=== PATIENT | male | born 1970 | race Caucasian/White ===

== ENCOUNTER 2017-03-10 16:12 | Emergency (ER) | payer OTHER ==
--- OUTSIDE RECORDS SUMMARY | 2017-03-10 16:42 | XMS REPORT | Continuity of Care Document ---
:1970 Author Organization [place] [address] Care Team Providers Name Role Phone Nathalia Cain Primary Care Provider [phone] Source Comments This disclosure is being made pursuant to the [employer] program and maynot contain all information available regarding this patient.numberFire Active Allergies and Adverse Reactions Not on File Current Medications Be aware that medications may not be up to date as of this document. Alwaysverify current medications with the patient. Not on file Active Problems Not on file Social History Tobacco Use Types Packs/Day Years Used Date Current Every Day Smoker Last Filed Vital Signs Vital Sign Reading Time Taken Blood Pressure 120/80 05/11/2011 4:03 PM CDT Pulse 80 05/11/2011 4:03 PM CDT Temperature 36.7 C (98 F) 05/11/2011 4:03 PM CDT Respiratory Rate - - Height 1.816 m (5' 11.5") 05/11/2011 4:03 PM CDT Weight 115.214 kg (254 lb) 05/11/2011 4:03 PM CDT Body Mass Index 34.94 05/11/2011 4:03 PM CDT Oxygen Saturation - - Plan of Care Health Maintenance Due Date Last Done Comments Retired-Pertussis Vaccine Adult 1987 Retired-Tetanus Vaccine Adult 1987 Retired-INFLUENZA VACCINE 07/23/2015 Results from Last 3 Months Not on file
[2017-03-10] MEDS ORDERED: ASPIRIN 81 MG TAB.CHEW PO ONE (16:56)
[2017-03-10] MEDS ORDERED: FAMOTIDINE 10 MG/ML VIAL IV ONE ×2 (16:57→17:10)
[2017-03-10] MEDS ORDERED: DIAZEPAM 5 MG TABLET PO ONE (16:57)
[2017-03-10] MEDS ORDERED: DIAZEPAM 5 MG TABLET ONE (17:09)
[2017-03-10] MEDS ORDERED: ASPIRIN 81 MG TAB.CHEW ONE (17:09)
[2017-03-10 17:19] LABS: Hematocrit 46.2 % (42.0-52.0); Hemoglobin 15.7 gm/dL (13.5-18.0); Mean Cell Volume 90.2 fl (78-100); Mean Corpuscular Hemoglobin 30.7 pg (27-31); Mean Platelet Volume 9.8 fl (6.0-9.5); Neutrophil # 4.5 K/mm3 (1.3-6.0); Platelet Count 227 K/mm3 (150-450); Red Blood Count 5.12 M/mm3 (4.7-6.0); Red Cell Distribution Width 12.2 % (11.5-14.0); White Blood Count 8.5 K/mm3 (4.0-10.5)
--- NOTE | 2017-03-10 17:27 | ERNOTE ---
Psychological HPI - Date Date of Service: 03/10/17 - General Chief Complaint: Anxiety Source: Reports: patient Exam Limitations: Reports: no limitations - Immun/Allergies/Home Medications Allergies/Adverse Reactions: Allergies Penicillins Adverse Reaction (Verified 03/10/17 16:30) Home Medications: HOME MEDICATIONS LORazepam [Ativan] 1 mg PO TID PRN #21 tablet 10/17/16 [Last Taken Unknown] Aspirin [Aspirin EC] 81 mg PO DAILY #30 tablet. 03/10/17 [Last Taken Unknown] LORazepam [Ativan] 1 mg PO BID #10 tablet 03/10/17 [Last Taken Unknown] Omeprazole 40 mg PO DAILY #30 capsule. 03/10/17 [Last Taken Unknown] - History of Present Illness Narrative: Patient comes due to chest pain, anxiety, and nausea. Patient has been with this problem since last week. Patient pain is on the L side of the chest area and goes up and down. Patient with no SOB and no cold sweating. Time Seen by Provider: 03/10/17 16:37 Arrived by: Reports: private car Onset/duration: Reports: intermittent Intent: Reports: no prior thoughts-suicide. Denies: suicide, prior thoughts of suicide Mechanism: Denies: overdose, incision, stab wound, ingestion Associated Symptoms: Reports: paranoid. Denies: depressed, frustrated, agitated , hostile, hallucinating, suicidal thoughts, specific plan, made gestures, made attempt Prior Treament: Denies: recently seen Review of Systems - Review of Systems Constitutional: Present: no symptoms reported EYE: Present: no symptoms reported ENT: Present: no symptoms reported Respiratory: Present: no symptoms reported Cardiology: Present: chest pain, palpitations. Absent: syncope, edema Gastrointestinal/Abdominal: Present: no symptoms reported Genitourinary: Present: no symptoms reported Musculoskeletal: Present: no symptoms reported Skin: Present: no symptoms reported Neurological: Present: anxiety. Absent: depressed, headache, dizziness/light- headedness, seizure, weakness, numbness, tingling, tremors, pre-existing deficit Endocrine: Present: no symptoms reported Hematologic/Lymphatic: Present: no symptoms reported Psych: Present: no symptoms reported All Other Systems: All systems neg except as marked - Patient's Past Medical History Patient History - Medical: No pertinent hx Patient History - Cardiac/Respiratory: No pertinent hx Patient History - Cancer: No Hx of Cancer Patient History - Surgical Procedures: Total Knee Replacement - Social History Do you dip or chew tobacco: Yes Smoking Stop Date: 02/07/17 Physical Exam - Physical Exam General Appearance: Present: wd/wn, alert, no apparent distress Eye Exam: Normal inspection: bilateral, PERRL: bilateral, EOMI: bilateral Ears, Nose, Throat: Present: normal ENT inspection, normal pharynx Neck: Present: normal inspection, nontender Respiratory: Present: no respiratory distress, normal breath sounds, no accessory muscle use, chest nontender, lungs clear Cardiovascular/Chest: Present: regular rate, rhythm, no murmur, normal peripheral pulses. Absent: JVD Gastrointestinal/Abdominal: Present: normal bowel sounds, nontender, nondistended, soft, no organomegaly Back Exam: Present: normal inspection, normal range of motion, no CVA tenderness , no vertebral tenderness Extremity Exam: Present: normal inspection, normal range of motion Neurological Exam: Present: alert, oriented, normal mood/affect, no motor/ sensory deficits Skin Exam: Present: normal color, warm/dry Lymphatic Exam: Present: no adenopathy ED Progress - Date and Time Seen: Date and Time: 03/10/17 18:22 TAVON Score: 0 Patient at the moment with no ST Elevation, negative Troponin with a Hx of CP for a week. Patient will be given Tx for anxiety and has been recommended out patient further evaluation for his condition. At this point patient has a low probability for SD. Patient gastric complaint has improved. - Results and Orders Patient's Lab Results:: I have reviewed the patient's lab results. Results and Orders: CBC: WNL CMP: WNL Trop: Negative - Vital Signs Patient's Vital Signs:: I have reviewed the patient's vital signs. Vital Signs: Vital Signs 03/10/17 03/10/17 16:18 16:31 Temperature 37 C 37 C Pulse Rate 84 84 Respiratory 14 14 Rate Blood Pressure 140/98 140/98 O2 Sat by Pulse 98 98 Oximetry - EKG EKG: NSR EKG read: Interp. by me EKG Comments: HR: 76, No ST Elevation, T wave change in III noticed. - X-Ray X-Ray #1 X-Ray: chest - No infiltrates found on film - Progress/Reassessment Chief Complaint: Anxiety Progress:: Improved - Transfer of Care Expected Disposition: Discharge Plan - Plan Plan: Patient is to get out patient follow up and evaluation. Departure Clinical Impression: Anxiety Chest pain Qualifiers: Chest pain type: unspecified Qualified Code(s): R07.9 - Chest pain, unspecified - Departure Disposition: Home self-care Condition: Stable Instructions: Panic Attacks, [id number], Nonspecific Chest Pain, [id number] , Chest Wall Pain, [id number] Referrals: Laura Pearce ARNP [Primary Care Provider] - Prescriptions: Aspirin [Aspirin EC] 81 mg PO DAILY #30 tablet. LORazepam [Ativan] 1 mg PO BID #10 tablet Omeprazole 40 mg PO DAILY #30 capsule.
[2017-03-10 17:33] LABS: Prothrombin Time (Patient) 10.7 Seconds (9.4-11.4)
[2017-03-10 17:34] LABS: INR 1.03 INR (0.90-1.10); Partial Thrombolplastin Time 27.5 Seconds (24-32)
[2017-03-10 17:39] LABS: ALT 59 U/L (19-67); AST 27 U/L (0-48); Albumin * 4.1 gm/dl (3.4-5.0); Alkaline Phosphatase * 59 U/L (50-170); Anion Gap 13.9 mmol/L (6.8-13.8); BUN/Creatinine Ratio 23.6 (9.0-21.6); Bilirubin, Total 0.6 mg/dL (0.0-1.1); Blood Urea Nitrogen 25 mg/dL (6-23); Calcium * 9.4 mg/dL (7.9-10.9); Carbon Dioxide 27.9 mmol/L (24-32.6); Chloride 103 mmol/L (97-106); Glucose * 95 mg/dL (70-110); Potassium 4.8 mmol/L (3.4-4.6); Sodium 140 mmol/L (132-142); Total Protein 7.8 gm/dL (6.2-8.2); Troponin I Less than 0.017 ng/ml (0.00-0.10)
[2017-03-10 18:41] VITALS: BP 135/92
== END 2017-03-10 18:38 | disposition home or self-care (01) ==
LOC: ER 16:12
DX: F41.9 Anxiety disorder, unspecified (principal); R07.9 Chest pain, unspecified; F17.220 Nicotine dependence, chewing tobacco, uncomplicated

== ENCOUNTER 2017-03-24 17:08 | Emergency (ER) | payer OTHER ==
--- OUTSIDE RECORDS SUMMARY | 2017-03-24 17:29 | XMS REPORT | Continuity of Care Document ---
:1970 Author Organization [place] [address] Care Team Providers Name Role Phone Nathalia Cain Primary Care Provider [phone] Source Comments This disclosure is being made pursuant to the [employer] program and maynot contain all information available regarding this patient.[employer] Active Allergies and Adverse Reactions Not on [...]
--- NOTE | 2017-03-24 17:58 | ERNOTE ---
Psychological HPI - General Chief Complaint: Anxiety Source: Reports: patient Exam Limitations: Reports: no limitations - Immun/Allergies/Home Medications Allergies/Adverse Reactions: Allergies Penicillins Adverse Reaction (Verified 03/24/17 17:22) Home Medications: HOME MEDICATIONS Aspirin [Aspirin EC] 81 mg PO DAILY #30 tablet. 03/10/17 [Last Taken Unknown] Omeprazole 40 mg PO DAILY #30 capsule. 03/10/17 [Last Taken Unknown] LORazepam [Ativan] 1 mg PO BID PRN #10 tablet 03/24/17 [Last Taken Unknown] Levothyroxine Sodium [Synthroid] 150 mcg PO DAILY 03/24/17 [Last Taken Unknown] hydrOXYzine HCL [Hydroxyzine HCl] 25 mg IM TID 03/24/17 [Last Taken Unknown] - History of Present Illness Narrative: Patient has had intermittent problems with anxiety. In the past they have been mild and his former doctor (who has retired) has given him ativan in the past which he usually used rarely. Over the last three weeks he has had episodes of feeling anxious with chest pain and sometimes shortness of breath. He usually sleeps well and feels fine until after he take a shower, then he start to fell ' bad' and anxious on and off for most of the day to the point where it is interfering with his work. He was seen in the ER two weeks ago and had a chest pain workup with was normal.He was given ativan which releived his symptoms. He followed up with his new PCP and was started on lexapro and hydroxyzine. He feels that those medications make him feel worse. He has a fair amount of stress at work, with his ex and teenage children, but does not feel that it is at a higher level than in the past. He is scheduled tomorrow for a consultation for a stress test Time Seen by Provider: 03/24/17 17:25 Review of Systems - Review of Systems Constitutional: Absent: recent illness, fever EYE: Absent: blurred vision ENT: Absent: nose congestion, sore throat Respiratory: Present: See HPI, shortness of breath Cardiology: Present: See HPI, chest pain Gastrointestinal/Abdominal: Absent: nausea, vomiting, diarrhea, abdominal pain Genitourinary: Present: no symptoms reported Neurological: Absent: headache, weakness, numbness - Patient's Past Medical History Patient History - Medical: Anxiety Patient History - Cardiac/Respiratory: No pertinent hx Patient History - Cancer: No Hx of Cancer Patient History - Surgical Procedures: Total Knee Replacement - Social History Living Situations: alone Abuse History: No History of abuse Psych History: Hx of Anxiety Smoking Status: Current some day smoker Alcohol Use: none Drug Use: none Physical Exam - Physical Exam General Appearance: Present: wd/wn, alert, no apparent distress, anxious Eye Exam: Normal inspection: bilateral, PERRL: bilateral Ears, Nose, Throat: Present: normal pharynx Respiratory: Present: no respiratory distress, normal breath sounds, lungs clear Cardiovascular/Chest: Present: regular rate, rhythm, no murmur Neurological Exam: Present: alert, oriented, normal mood/affect Skin Exam: Present: normal color, warm/dry ED Progress - Results and Orders Patient's Lab Results:: I have reviewed the patient's lab results. - Vital Signs Patient's Vital Signs:: I have reviewed the patient's vital signs. Vital Signs: Vital Signs 03/24/17 03/24/17 17:12 17:26 Temperature 36.6 C Pulse Rate 70 67 Respiratory 20 Rate Blood Pressure 142/83 O2 Sat by Pulse 99 Oximetry - EKG EKG: NSR, no ST T wave changes, unchanged from - 03/10/2017, other - no acute changes EKG read: Interp. by me - Progress/Reassessment Chief Complaint: Anxiety Progress Note-Subjective: 03/24/17 18:44 patient feeling better after ativan, discussed symptoms, test results and diagnosis at length Departure Clinical Impression: Anxiety - Departure Disposition: Home self-care Condition: Good Instructions: Panic Attacks, [id number] Additional Instructions: follow up for the stress test consult tomorrow as scheduled call your doctor for follow consider counseling Referrals: Laura Pearce ARNP [Primary Care Provider] - Prescriptions: LORazepam [Ativan] 1 mg PO BID PRN #10 tablet PRN Reason: Anxiety
[2017-03-24] MEDS ORDERED: LORazepam 1 MG TABLET PO ONE (18:08)
[2017-03-24] MEDS ORDERED: LORazepam 1 MG TABLET ONE (18:09)
[2017-03-24 18:22] LABS: T4 Free * 1.15 ng/dL (0.76-1.46); TSH * 1.315 uIU/mL (0.358-3.74); Troponin I Less than 0.017 ng/ml (0.00-0.10)
[2017-03-24 18:36] VITALS: BP 143/92
== END 2017-03-24 18:54 | disposition home or self-care (01) ==
LOC: ER 17:08
DX: F41.9 Anxiety disorder, unspecified (principal); Z72.0 Tobacco use

== ENCOUNTER 2017-08-03 17:06 | Emergency (ER) | payer OTHER ==
[2017-08-03] MEDS ORDERED: LORazepam 1 MG TABLET PO ONE (17:32)
[2017-08-03] MEDS ORDERED: LORazepam 2 MG/ML DISP.SYRIN ONE (17:34)
[2017-08-03] MEDS ORDERED: LORazepam 2 MG/ML DISP.SYRIN IM ONE (17:40)
[2017-08-03 17:48] LABS: Urine Bilirubin Negative (NEGATIVE); Urine Ketone Negative (NEGATIVE); Urine Nitrite Negative (NEGATIVE); Urine Protein Negative (NEGATIVE); Urine Specific Gravity 1.015 SP.GR. (1.005-1.030); Urine Urobilinogen Normal (NORMAL)
[2017-08-03 17:55] LABS: Hematocrit 46.4 % (42.0-52.0); Hemoglobin 15.9 gm/dL (13.5-18.0); Mean Cell Volume 89.6 fl (78-100); Mean Corpuscular Hemoglobin 30.7 pg (27-31); Mean Corpuscular Hgb Conc 34.3 g/dl (32-36); Mean Platelet Volume 9.8 fl (6.0-9.5); Neutrophil # 4.5 K/mm3 (1.3-6.0); Neutrophil % 51.3 % (42-75.0); Platelet Count 251 K/mm3 (150-450); Red Blood Count 5.18 M/mm3 (4.7-6.0); Red Cell Distribution Width 12.6 % (11.5-14.0); White Blood Count 8.7 K/mm3 (4.0-10.5)
[2017-08-03 17:59] LABS: Urine Appearance Slightly Cloudy; Urine Bacteria 1+; Urine Blood 5 /ul (NEGATIVE); Urine Color Yellow; Urine RBC TRACE /hpf (0-5); Urine WBC None Seen /hpf (0-5)
[2017-08-03 18:09] LABS: ALT 58 U/L (19-67); AST 24 U/L (0-48); Albumin * 3.9 gm/dl (3.4-5.0); Alkaline Phosphatase * 74 U/L (50-170); Anion Gap 16.5 mmol/L (6.8-13.8); BUN/Creatinine Ratio 12.1 (9.0-21.6); Bilirubin, Total 0.3 mg/dL (0.0-1.1); Blood Urea Nitrogen 14 mg/dL (6-23); CK Total * 183 U/L (0-259); Ca. Corrected For Albumin 8.5 mg/dL (8.4-10.2); Calcium * 8.7 mg/dL (7.9-10.9); Carbon Dioxide 24.8 mmol/L (24-32.6); Chloride 102 mmol/L (97-106); Glucose * 96 mg/dL (70-110); Magnesium 1.9 mg/dL (1.2-2.8); Potassium 4.3 mmol/L (3.4-4.6); Sodium 139 mmol/L (132-142); Total Protein 7.7 gm/dL (6.2-8.2)
--- NOTE | 2017-08-03 18:14 | ERNOTE ---
Psychological HPI - General Chief Complaint: Anxiety Source: Reports: patient Exam Limitations: Reports: no limitations - Immun/Allergies/Home Medications Allergies/Adverse Reactions: Allergies Penicillins Adverse Reaction (Verified 08/03/17 17:14) Home Medications: HOME MEDICATIONS Levothyroxine Sodium [Synthroid] 175 mcg PO DAILY 03/24/17 [Last Taken Unknown] Cephalexin Monohydrate [Keflex] 500 mg PO Q8H 08/03/17 [Last Taken Unknown] LORazepam [Ativan] 1 mg PO TID PRN #20 tablet 08/03/17 [Last Taken Unknown] - History of Present Illness Narrative: Patient appears to have free floating anxiety and general feeling of dread. He believes it must be something wrong inside of him despite a variety of previously done lab tests and x-rays all findings nothing amiss. Patient has been out of his antianxiety medicine for nearly 2 weeks and noticed that the symptoms have been getting worse. Time Seen by Provider: 08/03/17 17:24 Arrived by: Reports: private car Onset/duration: Reports: gradual onset Situational Problems: Reports: other - nothing in particular Associated Symptoms: Reports: other - very anxious Prior Treament: Reports: recently seen, treated by physician Review of Systems - Review of Systems Constitutional: Present: See HPI EYE: Present: no symptoms reported ENT: Present: no symptoms reported Respiratory: Present: no symptoms reported Cardiology: Present: no symptoms reported Gastrointestinal/Abdominal: Present: no symptoms reported Genitourinary: Present: no symptoms reported Musculoskeletal: Present: no symptoms reported Skin: Present: no symptoms reported Neurological: Present: anxiety Endocrine: Present: no symptoms reported Hematologic/Lymphatic: Present: no symptoms reported Psych: Present: no symptoms reported - Patient's Past Medical History Patient History - Medical: Anxiety Patient History - Cardiac/Respiratory: No pertinent hx Patient History - Cancer: No Hx of Cancer Patient History - Surgical Procedures: Total Knee Replacement - Social History Living Situations: alone Abuse History: No History of abuse Psych History: Hx of Anxiety Smoking Status: Current every day smoker Have you smoked in the past 12 months: Yes Alcohol Use: none Drug Use: none - Immunizations Immunizations Up to Date: Yes Psychological Exam - Exam General Appearance: Present: wd/wn, alert, no apparent distress Head Exam: Present: normal inspection Neurological: Present: anxious Thoughts/Hallucinations: Present: other - other than the underlying anxiety feeling that something must be wrong the remainder of his thought patterns appears to be intact Behavior/Eye Contact/Speech: Present: cooperative, good eye contact, normal speech ENT Exam normal except (see below): Yes Ears, Nose, Throat: Present: normal ENT inspection Neck: Present: normal inspection Respiratory: Present: no respiratory distress, normal breath sounds, no accessory muscle use Cardiovascular/Chest: Present: regular rate, rhythm, no murmur Gastrointestinal/Abdominal: Present: normal bowel sounds, nontender Rectal Exam: Present: deferred Male Genitals Exam: Present: deferred Back Exam: Present: normal range of motion, muscle spasm - tenderness at the right costovertebral area proximally mid thoracic Extremity Exam: Present: normal inspection, non-tender, normal range of motion, no edema Skin Exam: Present: normal color, warm/dry Lymphatic Exam: Present: no adenopathy ED Progress - Results and Orders Patient's Lab Results:: I have reviewed the patient's lab results. - Vital Signs Patient's Vital Signs:: I have reviewed the patient's vital signs. Vital Signs: Vital Signs 08/03/17 08/03/17 08/03/17 17:11 17:15 17:38 Temperature 36.7 C Pulse Rate 90 90 85 Respiratory 22 H 18 Rate Blood Pressure 126/77 146/107 O2 Sat by Pulse 97 99 Oximetry - Progress/Reassessment Chief Complaint: Anxiety Progress:: Re-examined Plan - Plan Plan: I suspect part of the underlying process Jaime is is free floating anxiety however also possible that there is some underlying thyroid etiology. Patient will discuss possibly changing to [place] thyroid with his family doctor. Departure Clinical Impression: Anxiety Hypothyroid Qualifiers: Hypothyroidism type: acquired Qualified Code(s): E03.9 - Hypothyroidism, unspecified - Departure Disposition: Home self-care Condition: Good Instructions: Panic Attacks, [id number], Hypothyroidism Prescriptions: LORazepam [Ativan] 1 mg PO TID PRN #20 tablet PRN Reason: Anxiety
[2017-08-03 18:20] VITALS: BP 133/85
== END 2017-08-03 18:33 | disposition home or self-care (01) ==
LOC: ER 17:06
DX: F41.1 Generalized anxiety disorder (principal); E03.9 Hypothyroidism, unspecified; F17.200 Nicotine dependence, unspecified, uncomplicated